=== PATIENT | male | born 1955 | race Caucasian/White ===

== ENCOUNTER 2022-02-12 11:23 | Inpatient (IN) ==
[2022-02-12] MEDS ORDERED: Naloxone 0.4 MG/ML INJ IVP PRN (12:07)
[2022-02-12 13:37] LABS: Hematocrit 36.6 % (37.5-50.1); Lymphocytes % 14.9 %; Red Cell Distribution Width 15.9 % (11.5-14.5); Segmented Neutrophils % 78.3 %
[2022-02-12 13:39] LABS: Basophils # 0.1 K/mcL (0.0-0.2); Basophils % 0.4 %; Eosinophils # 0.1 K/mcL (0.0-0.6); Eosinophils % 0.8 %; Hemoglobin 11.2 g/dL (12.9-16.9); Immature Granulocytes % 0.6 % (0-4); Immature Platelets 21.3 % (1.1-6.1); Lymphocytes # 1.9 K/mcL (0.6-4.6); Mean Corpuscular HGB Conc 30.6 g/dL (31.6-35.5); Mean Corpuscular Hemoglobin 26.1 pg (28.0-33.3); Mean Corpuscular Volume 85.3 fL (83.0-100.0); Mean Platelet Volume 12.5 fL (9.4-12.4); Monocytes # 0.6 K/mcL (0.0-1.3); Neutrophils # 9.9 K/mcL (1.6-8.9); Platelet Count 163 K/mcL (140-400); Red Blood Count 4.29 M/mcL (4.19-5.50); White Blood Count 12.7 K/mcL (4.3-11.1)
[2022-02-12 13:58] LABS: Alanine Aminotransferase 14 Units/L (7-52); Albumin 3.6 g/dL (3.5-5.7); Albumin/Globulin Ratio 1.4 (1.1-2.2); Alkaline Phosphatase 70 Units/L (34-104); Aspartate Amino Transferase 14 Units/L (13-39); BUN/Creatinine Ratio 18 (6-26); Bilirubin,Total 0.3 mg/dL (0.3-1.0); Blood Urea Nitrogen 36 mg/dL (8-23); Calcium 8.5 mg/dL (8.6-10.3); Carbon Dioxide 24 mEq/L (23-29); Chloride 101 mEq/L (98-107); Chol/HDL Ratio 3.5 (0-4.9); Cholesterol 180 mg/dL (< 200); Globulin 2.6 g/dL (2.4-3.5); Glucose 153 mg/dL (70-105); HDL Cholesterol 51 mg/dL (40-59); LDL Cholesterol,Calculated 84 mg/dL (< 100); Magnesium 2.5 mg/dL (1.6-2.6); Osmolality,Calculated 283 (280-300); Phosphorous 3.8 mg/dL (2.7-4.5); Potassium 6.3 mEq/L (3.5-5.1); Sodium 131 mEq/L (136-145); Total Protein 6.2 g/dL (6.4-8.9); Triglycerides 223 mg/dL (< 150); eGFR For African Americans 40 (> 60); eGFR For Non-African Americans 33 (> 60)
[2022-02-12 14:04] LABS: Estimated Average Glucose 214 mg/dl; Hemoglobin A1C 9.1 %
[2022-02-12 14:15] LABS: Troponin I < 0.03 ng/mL (< 0.04)
[2022-02-12] MEDS ORDERED: *HR* Heparin 5,000 UNIT/ML VIAL IVP PRN ×2 (14:42)
[2022-02-12] MEDS ORDERED: *HR* Heparin 5,000 UNIT/ML VIAL IVP ONE (14:42)
[2022-02-12] MEDS ORDERED: Heparin 25,000UNIT/250ML 1/2NS 25,000 UNIT/250 ML IV.SOLN IVC SCH (14:45)
[2022-02-12] MEDS: Heparin 25,000UNIT/250ML 1/2NS 25,000 UNIT/250 ML IV.SOLN IVC SCH (16:27)
[2022-02-12] MEDS: Aspirin 81 MG TAB.CHEW PO SCH (16:27)
[2022-02-12 16:39] LABS: Hematocrit 35.4 % (37.5-50.1); Hemoglobin 10.9 g/dL (12.9-16.9); Mean Corpuscular HGB Conc 30.8 g/dL (31.6-35.5); Mean Corpuscular Hemoglobin 26.1 pg (28.0-33.3); Mean Corpuscular Volume 84.9 fL (83.0-100.0); Mean Platelet Volume 12.7 fL (9.4-12.4); Platelet Count 146 K/mcL (140-400); Red Blood Count 4.17 M/mcL (4.19-5.50); Red Cell Distribution Width 15.9 % (11.5-14.5); White Blood Count 9.4 K/mcL (4.3-11.1)
[2022-02-12 16:46] LABS: Heparin anti-factor XA UFH 0.84 IU/mL (0.30-0.70); INR 1.1; Prothrombin Time 12.2 Seconds (9.4-12.1)
[2022-02-12] MEDS ORDERED: Acetaminophen 325 MG TABLET PO PRN (16:50)
[2022-02-12] MEDS ORDERED: *HR* Heparin 5,000 UNIT/ML VIAL SQ SCH (18:00)
[2022-02-12] MEDS ORDERED: Calcium Gluconate 1gm/50mL 1 GM/50 ML BAG IVPB ONE (21:45)
[2022-02-12] MEDS ORDERED: *HR* Dextrose 50 % in Water (Vial) 50 ML VIAL IVP ONE (21:45)
[2022-02-12 21:50] LABS: Calcium 8.3 mg/dL (8.6-10.3); Potassium 6.1 mEq/L (3.5-5.1)
[2022-02-12] MEDS ORDERED: Insulin Human Regular 10 UNIT in 0.9 % Sodium Chloride 10 ML IV ONE (22:00)
[2022-02-12] MEDS: SODIUM ZIRCONIUM CYCLOSILICATE 5 GM POWD.PACK PO SCH (23:57)
[2022-02-13 01:27] LABS: Hemoglobin 10.6 g/dL (12.9-16.9); Red Cell Distribution Width 15.9 % (11.5-14.5)
[2022-02-13 01:29] LABS: Hematocrit 33.4 % (37.5-50.1); Immature Platelets 22.6 % (1.1-6.1); Mean Corpuscular HGB Conc 31.7 g/dL (31.6-35.5); Mean Corpuscular Hemoglobin 26.5 pg (28.0-33.3); Mean Corpuscular Volume 83.5 fL (83.0-100.0); Mean Platelet Volume 13.2 fL (9.4-12.4); White Blood Count 10.2 K/mcL (4.3-11.1)
[2022-02-13 01:40] LABS: Calcium 8.7 mg/dL (8.6-10.3); Potassium 4.7 mEq/L (3.5-5.1)
[2022-02-13] MEDS: Heparin 25,000UNIT/250ML 1/2NS 25,000 UNIT/250 ML IV.SOLN IVC SCH ×3 (07:36→11:42)
[2022-02-13] MEDS ORDERED: 0.9 % Sodium Chloride 1,000 ML IVC SCH (08:45)
[2022-02-13] MEDS ORDERED: traZODone 50 MG TABLET PO SCH (09:00)
[2022-02-13] MEDS ORDERED: NON-FORMULARY MEDICATION 1 EACH EACH (Insulin Degludec [Tresiba Flextouch U-200] 200 UNIT/ SQ SCH (09:00)
[2022-02-13] MEDS: Aspirin 81 MG TAB.CHEW PO SCH (09:25)
[2022-02-13] MEDS: cloNIDine HCL 0.1 MG TABLET PO SCH ×2 (09:26→20:43)
[2022-02-13] MEDS: 0.9 % Sodium Chloride 1,000 ML IVC SCH ×2 (09:26→17:43)
[2022-02-13] MEDS: NIFEdipine XL (24 HR) 30 MG TAB.ER.24 PO SCH (09:26)
[2022-02-13] MEDS: Primidone 50 MG TABLET PO SCH ×2 (09:30→20:43)
[2022-02-13] MEDS: Insulin DETEMIR 100 UNIT/ML X5UNITS SUBQ SCH ×2 (09:50→20:45)
[2022-02-13 10:28] LABS: Magnesium 2.8 mg/dL (1.6-2.6)
[2022-02-13] MEDS: SODIUM ZIRCONIUM CYCLOSILICATE 5 GM POWD.PACK PO SCH ×2 (10:29→16:01)
[2022-02-13 19:30] LABS: Heparin anti-factor XA UFH 0.27 IU/mL (0.30-0.70)
[2022-02-13 20:15] LABS: Activated Partial Thrombo Time 40.5 Seconds (26.0-36.0)
[2022-02-14 03:07] LABS: Basophils % 0.5 %; Eosinophils # 0.2 K/mcL (0.0-0.6); Eosinophils % 2.5 %; Hematocrit 33.3 % (37.5-50.1); Hemoglobin 10.8 g/dL (12.9-16.9); Immature Granulocytes % 0.3 % (0-4); Lymphocytes % 27.7 %; Mean Corpuscular HGB Conc 32.4 g/dL (31.6-35.5); Mean Corpuscular Hemoglobin 26.7 pg (28.0-33.3); Mean Corpuscular Volume 82.2 fL (83.0-100.0); Mean Platelet Volume 13.4 fL (9.4-12.4); Monocytes # 0.8 K/mcL (0.0-1.3); Monocytes % 10.6 %; Neutrophils # 4.3 K/mcL (1.6-8.9); Platelet Count 154 K/mcL (140-400); Red Blood Count 4.05 M/mcL (4.19-5.50); Red Cell Distribution Width 15.9 % (11.5-14.5); Segmented Neutrophils % 58.4 %; White Blood Count 7.3 K/mcL (4.3-11.1)
[2022-02-14 03:23] LABS: Platelet Estimate Normal (Normal)
[2022-02-14 03:42] LABS: Complement C3 127 mg/dL (87-200)
[2022-02-14 03:44] LABS: Calcium 8.7 mg/dL (8.6-10.3); Magnesium 2.6 mg/dL (1.6-2.6); Potassium 4.6 mEq/L (3.5-5.1); Uric Acid 5.7 mg/dL (2.3-7.6)
[2022-02-14 04:09] LABS: Folate 15.7 ng/mL (3.0-16.0)
[2022-02-14] MEDS: NIFEdipine XL (24 HR) 30 MG TAB.ER.24 PO SCH (08:24)
[2022-02-14] MEDS: Aspirin 81 MG TAB.CHEW PO SCH (08:25)
[2022-02-14] MEDS: cloNIDine HCL 0.1 MG TABLET PO SCH (08:25)
[2022-02-14] MEDS: Primidone 50 MG TABLET PO SCH ×2 (08:26→20:39)
[2022-02-14] MEDS: Insulin DETEMIR 100 UNIT/ML X5UNITS SUBQ SCH ×2 (10:21→20:53)
[2022-02-14] MEDS ORDERED: carvediloL 6.25 MG TABLET PO SCH ×2 (10:26→17:00)
[2022-02-14] MEDS: 0.9 % Sodium Chloride 1,000 ML IVC SCH ×2 (10:29→20:38)
[2022-02-14 16:15] LABS: Protein/Creatinine Ratio,Urine 2.11 mg/mg (0.00-0.20); Sodium, Urine 107.3 mEq/L
[2022-02-14 16:17] LABS: Bilirubin,Urine Negative (Negative); Blood,Urine Negative (Negative); Clarity,Urine Clear (Clear); Color,Urine Light-Yellow (Yellow); Glucose,Urine (UA) >=1000 mg/dL (Normal); Ketones,Urine Negative (Negative); Leukocyte Esterase,Urine Negative (Negative); Nitrite,Urine Negative (Negative); PH,Urine 6.5 pH Units (5.0-8.0); Protein,Urine 100 mg/dL (Neg-Trace); RBC,Urine 0-3 per hpf (0-3); Specific Gravity,Urine 1.013 (1.010-1.025); Squamous Epithelial Cell,Urine Few per hpf (None-Few); Urobilinogen,Urine Normal (Normal); WBC,Urine 0-3 per hpf (0-3)
[2022-02-14] MEDS: Heparin 25,000UNIT/250ML 1/2NS 25,000 UNIT/250 ML IV.SOLN IVC SCH ×2 (17:29)
[2022-02-14 17:48] LABS: BUN/Creatinine Ratio 23 (6-26); Blood Urea Nitrogen 29 mg/dL (8-23); Calcium 7.8 mg/dL (8.6-10.3); Carbon Dioxide 21 mEq/L (23-29); Chloride 109 mEq/L (98-107); Glucose 157 mg/dL (70-105); Osmolality,Calculated 293 (280-300); Potassium 4.2 mEq/L (3.5-5.1); Sodium 137 mEq/L (136-145); eGFR For African Americans > 60 (> 60); eGFR For Non-African Americans 56 (> 60)
[2022-02-14] MEDS: traZODone 50 MG TABLET PO SCH (20:39)
[2022-02-14] MEDS: carvediloL 6.25 MG TABLET PO SCH (20:39)
[2022-02-14] MEDS ORDERED: cloNIDine HCL 0.1 MG TABLET PO ONE (23:59)
[2022-02-15 01:48] LABS: Hemoglobin 10.9 g/dL (12.9-16.9); Immature Granulocytes % 0.3 % (0-4); Platelet Count 152 K/mcL (140-400)
[2022-02-15 01:50] LABS: Basophils % 0.3 %; Eosinophils # 0.2 K/mcL (0.0-0.6); Eosinophils % 2.8 %; Immature Platelets 16.7 % (1.1-6.1); Lymphocytes # 2.2 K/mcL (0.6-4.6); Lymphocytes % 29.1 %; Mean Corpuscular HGB Conc 31.1 g/dL (31.6-35.5); Mean Corpuscular Volume 83.3 fL (83.0-100.0); Mean Platelet Volume 12.9 fL (9.4-12.4); Monocytes # 0.8 K/mcL (0.0-1.3); Monocytes % 10.2 %; Neutrophils # 4.3 K/mcL (1.6-8.9); Red Cell Distribution Width 15.9 % (11.5-14.5); Segmented Neutrophils % 57.3 %; White Blood Count 7.5 K/mcL (4.3-11.1)
[2022-02-15 02:02] LABS: BUN/Creatinine Ratio 22 (6-26); Blood Urea Nitrogen 30 mg/dL (8-23); Calcium 8.7 mg/dL (8.6-10.3); Carbon Dioxide 21 mEq/L (23-29); Chloride 108 mEq/L (98-107); Glucose 141 mg/dL (70-105); Magnesium 2.2 mg/dL (1.6-2.6); Osmolality,Calculated 293 (280-300); Phosphorous 3.2 mg/dL (2.7-4.5); Potassium 4.3 mEq/L (3.5-5.1); Sodium 137 mEq/L (136-145); eGFR For African Americans > 60 (> 60); eGFR For Non-African Americans 52 (> 60)
[2022-02-15] MEDS: 0.9 % Sodium Chloride 1,000 ML IVC SCH (06:53)
[2022-02-15] MEDS: Insulin DETEMIR 100 UNIT/ML X5UNITS SUBQ SCH ×2 (09:19→20:18)
[2022-02-15] MEDS: carvediloL 6.25 MG TABLET PO SCH ×2 (09:19→17:03)
[2022-02-15] MEDS: Primidone 50 MG TABLET PO SCH ×2 (09:19→20:17)
[2022-02-15] MEDS: Aspirin 81 MG TAB.CHEW PO SCH (09:19)
[2022-02-15] MEDS: NIFEdipine XL (24 HR) 30 MG TAB.ER.24 PO SCH (09:19)
[2022-02-15] MEDS ORDERED: cloNIDine HCL 0.1 MG TABLET PO SCH (09:45)
[2022-02-15] MEDS: cloNIDine HCL 0.1 MG TABLET PO SCH ×2 (10:40→20:18)
[2022-02-15] MEDS: Heparin 25,000UNIT/250ML 1/2NS 25,000 UNIT/250 ML IV.SOLN IVC SCH ×2 (15:56)
[2022-02-15] MEDS: hydrALAZINE 25 MG TABLET PO SCH (17:03)
[2022-02-15] MEDS: traZODone 50 MG TABLET PO SCH (20:18)
[2022-02-16] MEDS: hydrALAZINE 25 MG TABLET PO SCH ×4 (00:46→14:30)
[2022-02-16 03:24] LABS: Hematocrit 35.1 % (37.5-50.1); Hemoglobin 11.2 g/dL (12.9-16.9)
[2022-02-16 03:39] LABS: Calcium 8.9 mg/dL (8.6-10.3); Magnesium 2.2 mg/dL (1.6-2.6); Potassium 4.5 mEq/L (3.5-5.1)
[2022-02-16 07:23] VITALS: TEMP 97.5
[2022-02-16] MEDS: NIFEdipine XL (24 HR) 30 MG TAB.ER.24 PO SCH (08:46)
[2022-02-16] MEDS: cloNIDine HCL 0.1 MG TABLET PO SCH (08:46)
[2022-02-16] MEDS: Primidone 50 MG TABLET PO SCH (08:46)
[2022-02-16] MEDS: carvediloL 6.25 MG TABLET PO SCH (08:46)
[2022-02-16] MEDS: Aspirin 81 MG TAB.CHEW PO SCH (08:46)
[2022-02-16] MEDS: Insulin DETEMIR 100 UNIT/ML X5UNITS SUBQ SCH (08:47)
[2022-02-16 10:51] LABS: ANA IgG by ELISA DETECTED (None Detected)
[2022-02-16] MEDS: Heparin 25,000UNIT/250ML 1/2NS 25,000 UNIT/250 ML IV.SOLN IVC SCH (12:20)
[2022-02-16 14:33] VITALS: BP 129/68; PULSE 50; O2SAT 96
[2022-02-17 08:54] LABS: Alpha 2 Globulin (PEP) 0.88 g/dL (0.48-1.05)
[2022-02-17 10:46] LABS: IFE Reflexed NOT DONE
[2022-02-17 11:35] LABS: ANA HEp-2 IgG IFA DETECTED (<1:80); Anti Nuclear Ab Pattern SPECKLED
[2022-02-18 23:32] LABS: ANCA IFA Titer <1:20 (<1:20)
[2022-02-19 09:54] LABS: ANCA IFA Pattern NONE DETECTED (None Detected); Serine Protease-3 Antibody 0 AU/mL (0-19)
== END 2022-02-16 13:55 | disposition home or self-care (01) | DRG 309 ==
LOC: 3NENU → SUATTDRO 11:33
PROVIDERS: ADMIT Internal Medicine; ATTEND Internal Medicine